=== PATIENT | female | born 1995 | race Caucasian/White ===

== ENCOUNTER → 2018-01-24 09:57 | Outpatient (CLI) | payer OTHER, SELFPAY ==
--- NOTE | 2018-01-24 | DI.RAD.S_ITS ---
PROCEDURE: XR CHEST 2V INDICATIONS: Exposure to black mold x12mo, cough, wheezing, SOB TECHNIQUE: 2 views of the chest were acquired. COMPARISON: None. FINDINGS: Surgical changes and devices: None. Lungs and pleura: No pleural effusions or pneumothorax. Lungs are clear. Mediastinum: Mediastinal contours are normal. Heart size is normal. Bones and chest wall: No suspicious bony abnormalities. Soft tissues appear unremarkable. IMPRESSION: No acute disease. Dictated by: Yandel Mesa M.D. on 01/24/2018 at 11:39 Approved by: Yandel Mesa M.D. on 01/24/2018 at 11:50
== END ==
PROVIDERS: Visit Provider Nurse Practitioner Family
DX: R05 Cough (principal); R06.2 Wheezing; R06.02 Shortness of breath; Z77.120 Contact with and (suspected) exposure to mold (toxic)
CPT/HCPCS: 71046

== ENCOUNTER → 2018-02-03 12:49 | Outpatient (CLI) | payer OTHER, SELFPAY ==
--- NOTE | 2018-02-04 16:11 | PM.PFT.1 ---
Pulmonary Function Test Referral & Results Date Patient Seen: 02/03/18 Requesting provider: April South Indication: Shortness of breath Results: The spirometry demonstrates an FVC of 5.95 L which is 126% of predicted. The FEV1 was measured at 4.99 L which is 125% of predicted. The FEV1/FVC ratio was 80 for which is 97% of predicted. Following the administration of bronchodilator there was no appreciable change in above normal numbers. Lung volumes show an SVC of 5.45 L which is 121% of predicted. The diffusing capacity was measured at 31.75 which is 94% of predicted. Interpretation: This study demonstrates normal pulmonary function
== END ==
PROVIDERS: Visit Provider Nurse Practitioner Family
DX: R06.02 Shortness of breath (principal)
CPT/HCPCS: 94060; 94726; 94729

== ENCOUNTER → 2022-03-05 08:43 | Outpatient (CLI) | payer SELFPAY | PROVIDERS: Visit Provider Registered Nurse | DX: J02.9 Acute pharyngitis, unspecified (principal); N39.0 Urinary tract infection, site not specified | CPT/HCPCS: 87086 ==